=== PATIENT | female | born 1975 | race Native Hawaiian/Other Pacific Islander ===

== ENCOUNTER 2019-04-02 10:43 | Emergency (ER) | payer OTHER ==
[~2019-04-02] VITALS: Ht 177.8 cm; Wt 124.7 kg
[2019-04-02 10:48] VITALS: BP 142/89; TEMP 98.1
== END 2019-04-02 12:26 | disposition home or self-care (01) ==
LOC: ED 10:43
DX: S60.222A Contusion of left hand, initial encounter (principal); W19.XXXA Unspecified fall, initial encounter
CPT/HCPCS: 99283